=== PATIENT | male | born 1975 | race Caucasian/White ===

== ENCOUNTER 2017-10-05 03:53 | Emergency (ER) | payer OTHER, MEDICAID, SELFPAY ==
[2017-10-05] VITALS (11 sets, daily range): BP systolic 114–133; BP diastolic 74–92; PULSE 83–103; RESP 14–20; TEMP 35.9–37; O2SAT 92–100
--- NOTE | 2017-10-05 04:01 | ED.OVERDOSE ---
HPI - Overdose General Chief Complaint: Toxicology Problem Stated Complaint: Overdose Time Seen by Provider: 10/05/17 03:58 Source: EMS and other (Girlfriend) Mode of arrival: EMS Limitations: altered mental status History of Present Illness HPI Narrative: Patient arrived by EMSafter they were called along with the police by the patient's girlfriend after she ate concerns of him overdosing on his BuSpar And also consuming copious amounts of alcohol. Is reported that sometime prior to EMS being called patient took up to 90x 15 mg BuSpar tablets Along with alcohol. Related Data Home Medications Medication Instructions Recorded Confirmed sertraline [Zoloft] #0 05/18/17 ibuprofen 600 mg PO TID #0 05/27/17 Previous Rx's Medication Instructions Recorded bupropion HCl [Wellbutrin SR] 100 mg PO BID #30 tab 03/18/17 Allergies Allergy/AdvReac Type Severity Reaction Status Date / Time hydrocodone [HYDROCODONE] Allergy Unknown Unverified 09/04/17 13:01 nicotine [From NICORETTE] Allergy Unknown Unverified 09/04/17 13:01 Review of Systems Review of Systems unobtainable due to mental condition Exam Const General: well developed and No combative Nutritional Appearance: well nourished Limitations: altered mental status and behavioral limitations HENMT Head: normocephalic and atraumatic Nose: external nose normal Face and sinus: normal facial exam Mouth: oral mucosae normal Eyes Eyelids: eyelids normal Pupils: PERRL, reactive and pupil size ( 2 mm) bilaterally Neck Neck: normal visual inspection Chest Chest: normal inspection of the chest Resp Effort & Inspection: not labored and no respiratory distress Auscultation: crackles bilaterally Cardio Rate: regular rate Rhythm: regular rhythm Heart Sounds: no click, no gallops, no murmurs and no rubs Pulses: normal peripheral pulses GI Inspection: non-distended and scar (Midline surgical scar) Palpation: soft Back/Spine/Pelvis Back: normal to inspection Thoracic/Lumbar Spine: thoracic and lumbar spine normal to inspection Skin General: No jaundice and No petechiae Other: Superficial abrasions left elbow Bruising over the left lateral chest wall that does not appear to be new Neuro Other: Patient not cooperative with EXAM GCS of 8 Eye 3 Verbal 1 Motor 4 Extrem Other: No gross deformities Moves all 4 extremities spontaneously however not to command Psych Other: Unable to evaluate secondary to patient's clinical condition MDM - Overdose MDM Narrative Medical decision making narrative: l I discussed the case with poison Control who stated that he needed to be observed for 4 hr after the last ingestion of the BuSpar. Patient has had no sign of seizures. At 1 point did wake up and tried to get out of bed however was directable and did urinate. Does have elevated alcohol level. No other signs of toxic ingestion. Will continue to monitor here in the emergency department for sobriety then re-evaluate for potential mental health evaluation. Turned over to Dr. Venegas at change of shift to follow-up on clinical sobriety and disposition. Lab Data Attestation: I reviewed the patient's lab results. Result diagrams: 10/05/17 04:15 10/05/17 04:45 Lab Results 10/05/17 10/05/17 10/05/17 Range/Units 03:50 04:15 04:15 WBC 8.7 (4.5-11.0) X10^3/uL RBC 4.69 (4.5-5.9) X10^6/uL Hgb 15.2 (13.5-17.5) g/dL Hct 43.3 (41-53) % MCV 92.3 (80-100) fL MCH 32.4 (26-34) PG MCHC 35.1 (30-36) % RDW 14.3 (11.6-14.8) % Plt Count 324 (150-400) X10^3/uL Neut % (Auto) 58.5 (50-75) % Lymph % (Auto) 28.7 (25-40) % Stanley % (Auto) 11.0 (3-14) % Eos % (Auto) 1.3 L (2-4) % Baso % (Auto) 0.5 (0-2) % Neut # (Auto) 5100 (7518-8467) /uL Sodium (137-145) mmol/L Potassium (3.4-5.1) mmol/L Chloride (98-107) mmol/L Carbon Dioxide (22-32) mmol/L BUN (9-20) mg/dL Creatinine (0.66-1.25) mg/dL Estimated GFR (>60) mL/min BUN/Creatinine Ratio (6-22) Glucose (70-100) mg/dL Lactate (0.7-2.1) mmol/L Calcium (8.4-10.2) mg/dL Total Bilirubin (0.2-1.3) mg/dL Conjugated Bilirubin (0.0-0.3) md/dL Unconjugated Bilirubin (0.0-1.1) mg/dL AST (17-59) IU/L ALT (21-72) IU/L Alkaline Phosphatase (38-126) U/L Total Protein (6.3-8.2) g/dL Albumin (3.5-5.0) g/dL Globulin (1.7-4.1) g/dL Albumin/Globulin Ratio (1.0-2.8) Lipase 207 (23-300) U/L Salicylates < 1.0 (<20) mg/dL Urine Opiates Screen (Negative) Ur Oxycodone Screen (Negative) Urine Methadone Screen (Negative) Acetaminophen < 10 L (10-30) ug/dL Ur Barbiturates Screen (Negative) U Tricyclic Antidepress (Negative) Ur Phencyclidine Scrn (Negative) Ur Amphetamines Screen (Negative) U Methamphetamines Scrn (Negative) Ur MDMA Scrn (Ecstasy) (Negative) U Benzodiazepines Scrn (Negative) Urine Cocaine Screen (Negative) U Marijuana (THC) Screen (Negative) Ethyl Alcohol 220 mg/dL 10/05/17 10/05/17 10/05/17 Range/Units 04:35 04:40 04:45 WBC (4.5-11.0) X10^3/uL RBC (4.5-5.9) X10^6/uL Hgb (13.5-17.5) g/dL Hct (41-53) % MCV (80-100) fL MCH (26-34) PG MCHC (30-36) % RDW (11.6-14.8) % Plt Count (150-400) X10^3/uL Neut % (Auto) (50-75) % Lymph % (Auto) (25-40) % Stanley % (Auto) (3-14) % Eos % (Auto) (2-4) % Baso % (Auto) (0-2) % Neut # (Auto) (0116-8964) /uL Sodium 149 H (137-145) mmol/L Potassium 4.8 (3.4-5.1) mmol/L Chloride 104.0 (98-107) mmol/L Carbon Dioxide 25.0 (22-32) mmol/L BUN 11.0 (9-20) mg/dL Creatinine 0.90 (0.66-1.25) mg/dL Estimated GFR > 60.0 (>60) mL/min BUN/Creatinine Ratio 12.2 (6-22) Glucose 112 H (70-100) mg/dL Lactate 2.8 H (0.7-2.1) mmol/L Calcium 8.9 (8.4-10.2) mg/dL Total Bilirubin 0.4 (0.2-1.3) mg/dL Conjugated Bilirubin 0.0 (0.0-0.3) md/dL Unconjugated Bilirubin 0.1 (0.0-1.1) mg/dL AST 44 (17-59) IU/L ALT 64 (21-72) IU/L Alkaline Phosphatase 68 (38-126) U/L Total Protein 7.6 (6.3-8.2) g/dL Albumin 4.6 (3.5-5.0) g/dL Globulin 3.0 (1.7-4.1) g/dL Albumin/Globulin Ratio 1.5 (1.0-2.8) Lipase (23-300) U/L Salicylates (<20) mg/dL Urine Opiates Screen Negative (Negative) Ur Oxycodone Screen Negative (Negative) Urine Methadone Screen Negative (Negative) Acetaminophen (10-30) ug/dL Ur Barbiturates Screen Negative (Negative) U Tricyclic Antidepress Positive H (Negative) Ur Phencyclidine Scrn Negative (Negative) Ur Amphetamines Screen Negative (Negative) U Methamphetamines Scrn Negative (Negative) Ur MDMA Scrn (Ecstasy) Negative (Negative) U Benzodiazepines Scrn Positive H (Negative) Urine Cocaine Screen Negative (Negative) U Marijuana (THC) Screen Negative (Negative) Ethyl Alcohol mg/dL Course Hospital Course: discussed case with poison Control who state that with the BuSpar concern would be seizures and [employer] depression. Half-life of evaluation for BuSpar is 4 hr after ingestion. Orders Ordered: ED Orders 10/05/17 03:50 Lipase Stat 10/05/17 03:58 EKG-12 Lead Stat 10/05/17 04:15 Acetaminophen Stat Complete Blood Count AUTO DIFF Stat Ethanol (ETOH) Stat Salicylate Stat 10/05/17 04:35 Rapid Drug Screen, Urine Stat 10/05/17 04:40 Lactate (Lactic Acid) Stat 10/05/17 04:45 Comprehensive Metabolic Panel Stat Hepatic (Liver) Panel Stat Discontinued Medications Sodium Chloride (Normal Saline 0.9%) 1,000 mls @ 1,000 mls/hr IV BOLUS ONE Stop: 10/05/17 04:57 Last Infusion: 10/05/17 05:30 Dose: 0 mls/hr Admin: 10/05/17 04:11 Dose: 1,000 mls/hr Ondansetron HCl (Zofran) 4 mg IV NOW ONE Stop: 10/05/17 03:59 Last Admin: 10/05/17 04:11 Dose: 4 mg Last Vital Signs Temp 96.7 F L 10/05/17 04:00 Pulse 92 H 10/05/17 06:40 Resp 17 10/05/17 06:40 BP 119/90 H 10/05/17 06:40 Pulse Ox 100 10/05/17 05:25 Discharge Plan Departure Prescriptions: No Action bupropion HCl [Wellbutrin SR] 100 MG tablet extended release 12 hr 100 mg PO BID Qty: 30 RF: 1 sertraline [Zoloft] 25 mg Tablet Qty: 0 RF: 0 ibuprofen 600 MG tablet 600 mg PO TID Qty: 0 RF: 0
[2017-10-05] MEDS: ONDANSETRON 4 MG/2 ML INJ IV (04:11)
[2017-10-05] MEDS: SODIUM CHLORIDE 0.9% 1,000 ML 1000 ML IV (04:11)
[2017-10-05 04:16] LABS: Lipase 207 U/L (23-300)
[2017-10-05 04:53] LABS: Add Manual Diff / Slide Review NO; Basophils Percent Auto 0.5 % (0-2); Eosinophils Percent Auto 1.3 % (2-4); Hematocrit 43.3 % (41-53); Hemoglobin 15.2 g/dL (13.5-17.5); Lymphocytes Percent Auto 28.7 % (25-40); Mean Corpuscular HGB Conc 35.1 % (30-36); Mean Corpuscular Hemoglobin 32.4 PG (26-34); Mean Corpuscular Volume 92.3 fL (80-100); Neutrophils Absolute Auto 5100 /uL (3000-5900); Neutrophils Percent Auto 58.5 % (50-75); Platelet Count 324 X10^3/uL (150-400); Red Blood Cell Count 4.69 X10^6/uL (4.5-5.9); Red Cell Distribution Width 14.3 % (11.6-14.8); White Blood Cell Count 8.7 X10^3/uL (4.5-11.0)
[2017-10-05 04:54] LABS: Acetaminophen < 10 ug/dL (10-30); Ethanol (ETOH) 220 mg/dL
[2017-10-05 04:55] LABS: Salicylate < 1.0 mg/dL (<20)
[2017-10-05 04:58] LABS: Urine Amphetamines Negative (Negative); Urine Barbiturates Negative (Negative); Urine Benzodiazepines Positive (Negative); Urine Cocaine Negative (Negative); Urine MDMA Negative (Negative); Urine Methadone Negative (Negative); Urine Methamphetamines Negative (Negative); Urine Morphine/Opi cutoff 2000 Negative (Negative); Urine Phencyclidine Negative (Negative); Urine Tetrahydrocannabinol Negative (Negative)
[2017-10-05 04:58] LABS: Alanine Aminotransferase 64 IU/L (21-72); Albumin 4.6 g/dL (3.5-5.0); Albumin Globulin Ratio 1.5 (1.0-2.8); Alkaline Phosphatase 68 U/L (38-126); Aspartate Aminotransferase 44 IU/L (17-59); BUN Creatinine Ratio 12.2 (6-22); Bilirubin Total 0.4 mg/dL (0.2-1.3); Bilirubin Unconjugated 0.1 mg/dL (0.0-1.1); Calcium 8.9 mg/dL (8.4-10.2); Estimated Glomerular Filt Rate > 60.0 mL/min (>60); Glucose 112 mg/dL (70-100); HEMOLYSIS 19 (0-50); Potassium 4.8 mmol/L (3.4-5.1); Sodium 149 mmol/L (137-145); Total Protein 7.6 g/dL (6.3-8.2)
[2017-10-05 04:59] LABS: Urine Oxycodone Negative (Negative); Urine Tricyclic Antidepressant Positive (Negative)
[2017-10-05 05:07] LABS: Lactate (Lactic Acid) 2.8 mmol/L (0.7-2.1)
[2017-10-05 08:53] LABS: Reflexed Lactate in 2 Hours Y
[2017-10-05 09:37] LABS: Lactate 2HR (Lactic Acid Rflx) 2.2 mmol/L (0.7-2.1)
--- NOTE | 2017-10-05 10:10 | PC.NURSE ---
Girlfriend calls. States will be back to ED to see patient and talk with cdmhp.
== END 2017-10-05 14:09 ==
PROVIDERS: Emergency Medicine; Emergency Provider Emergency Medicine
DX: T50.901A Poisoning by unspecified drugs, medicaments and biological substances, accidental (unintentional), initial encounter (principal); F10.929 Alcohol use, unspecified with intoxication, unspecified; R45.851 Suicidal ideations
CPT/HCPCS: 36591; 80053; 80076; 80305; 80320; 80329; 83605; 83690; 85025; 93005; 96361; 96374; 99285; G0480; J2405

== ENCOUNTER → 2018-09-29 11:38 | Outpatient (CLI) | payer OTHER, MEDICAID, SELFPAY ==
--- NOTE | 2018-09-29 | DI.RAD.S_ITS ---
PROCEDURE: XR HAND LT MIN 3V INDICATIONS: L HAND SWELLING/PAIN S/P INJURY TECHNIQUE: 3 views of the hand(s) acquired. COMPARISON: None. FINDINGS: Bones: Mildly displaced and moderately angulated fifth metacarpal neck fracture. Mild rotation of the fifth metacarpal head. No dislocation. Irregularity of the third distal phalanx tuft indicating remote injury with healing. Carpal bones are normally aligned. No suspicious bony lesions. Soft tissues: No suspicious soft tissue calcifications. Moderate soft tissue swelling along the medial aspect of the hand. IMPRESSION: Mildly displaced, angulated, and slightly rotated fifth metacarpal fracture. Dictated by: Carlyn Motta M.D. on 09/29/2018 at 13:29 Approved by: Carlyn Motta M.D. on 09/29/2018 at 13:31
== END ==
PROVIDERS: Visit Provider Internal Medicine
DX: M79.642 Pain in left hand (principal); S62.337A Displaced fracture of neck of fifth metacarpal bone, left hand, initial encounter for closed fracture; M79.89 Other specified soft tissue disorders; X58.XXXA Exposure to other specified factors, initial encounter
CPT/HCPCS: 73130

== ENCOUNTER 2018-10-12 00:37 | Emergency (ER) | payer OTHER, MEDICAID, SELFPAY ==
--- NOTE | 2018-10-12 00:48 | ED.GENADULT ---
HPI - General Adult General Stated complaint: Fit for [facility] Time Seen by Provider: 10/12/18 00:43 Source: patient and police Mode of arrival: ambulatory Limitations: other (Intoxicated) History of Present Illness HPI narrative: Patient is a 43-year-old male. History of PTSD and depression. Is brought in by police for a fit for shelter. Patient does have a splint on his left hand secondary to a known fracture. He is under the care of Orthopedics. He states he does take the splint off on a daily basis to shower. He reports no symptoms. He states he has been drinking tonight. Related Data Home Medications Medication Instructions Recorded Confirmed sertraline [Zoloft] #0 05/18/17 ibuprofen 600 mg PO TID #0 05/27/17 Previous Rx's Medication Instructions Recorded bupropion HCl [Wellbutrin SR] 100 mg PO BID #30 tab 03/18/17 Allergies Allergy/AdvReac Type Severity Reaction Status Date / Time hydrocodone [HYDROCODONE] Allergy Unknown Verified 10/12/18 00:51 nicotine [From NICORETTE] Allergy Unknown Verified 10/12/18 00:51 Review of Systems Constitutional Denies fatigue Cardiovascular Denies chest pain and Denies dyspnea Respiratory Denies dyspnea Gastrointestinal Gastrointestinal: Denies abdominal pain Musculoskeletal Comments: Splint to left hand Integumentary/Breasts Denies rash Psychiatric Comments: Intoxication Endocrine Denies fatigue [facility] Medical History (Updated 10/12/18 @ 00:53 by Harjinder Wen DO) Depression (Acute) PTSD (post-traumatic stress disorder) (Acute) Social History marital status: lives independently: Yes Social History marital status: lives independently: Yes Exam Const General: cooperative, well developed, well groomed and No acute distress Orientation: alert, awake and oriented x3 Resp Effort & Inspection: normal respiratory effort Auscultation: clear to auscultation bilaterally Cardio Rate: regular rate Rhythm: regular rhythm Skin Lesions: no lesions Rashes: no rashes Extrem Other: Splint to left hand Psych Appearance: grossly normal and well kempt Mental Status: other (Crying) Mood: other (Crying) Medical Decision Making MDM Narrative Medical decision making narrative: Patient smells of alcohol however is alert and oriented. Walked in under his own power. Has no complaints. Has no other signs of toxic ingestion. No signs of trauma. Patient is fit for shelter. Discharge Plan Departure Patient Disposition: Released, Other Clinical Impression: Alcohol intoxication Qualifiers: Complication of substance-induced condition: uncomplicated Qualified Code(s): F10.920 - Alcohol use, unspecified with intoxication, uncomplicated Activity Restrictions/Additional Instructions: Pawan is fit for shelter. He should keep the splint on his left hand at all times. If needed he does need followed up with the [facility] at the beginning of October at appointment that he already has scheduled. Prescriptions: No Action bupropion HCl [Wellbutrin SR] 100 MG tablet extended release 12 hr 100 mg PO BID Qty: 30 RF: 1 sertraline [Zoloft] 25 mg tablet Qty: 0 RF: 0 ibuprofen 600 MG tablet 600 mg PO TID Qty: 0 RF: 0
[2018-10-12 00:51] VITALS: BP 144/98; PULSE 102; RESP 15; TEMP 36.8; O2SAT 95
--- NOTE | 2018-10-12 00:53 | ED_ITS ---
HPI - General Adult General Stated complaint: Fit for Nursing Home Time Seen by Provider: 10/12/18 00:43 Source: patient and police Mode of arrival: ambulatory Limitations: other (Intoxicated) History of Present Illness HPI narrative: Patient is a 43-year-old male. History of PTSD and depression. Is brought in by police for a fit for [facility]iary. Patient does have a splint on his left hand secondary to a known fracture. He is under the care of Orthopedics. He states he does take the splint off on a daily basis to shower. He reports no symptoms. He states he has been drinking tonight. Related Data Home Medications Medication Instructions Recorded Confirmed sertraline [Zoloft] #0 05/18/17 ibuprofen 600 mg PO TID #0 05/27/17 Previous Rx's Medication Instructions Recorded bupropion HCl [Wellbutrin SR] 100 mg PO BID #30 tab 03/18/17 Allergies Allergy/AdvReac Type Severity Reaction Status Date / Time hydrocodone [HYDROCODONE] Allergy Unknown Verified 10/12/18 00:51 nicotine [From NICORETTE] Allergy Unknown Verified 10/12/18 00:51 Review of Systems Constitutional Denies fatigue Cardiovascular Denies chest pain and Denies dyspnea Respiratory Denies dyspnea Gastrointestinal Gastrointestinal: Denies abdominal pain Musculoskeletal Comments: Splint to left hand Integumentary/Breasts Denies rash Psychiatric Comments: Intoxication Endocrine Denies fatigue [facility] Medical History (Updated 10/12/18 @ 00:53 by Harjinder Wen DO) Depression (Acute) PTSD (post-traumatic stress disorder) (Acute) Social History marital status: lives independently: Yes Social History marital status: lives independently: Yes Exam Const General: cooperative, well developed, well groomed and No acute distress Orientation: alert, awake and oriented x3 Resp Effort & Inspection: normal respiratory effort Auscultation: clear to auscultation bilaterally Cardio Rate: regular rate Rhythm: regular rhythm Skin Lesions: no lesions Rashes: no rashes Extrem Other: Splint to left hand Psych Appearance: grossly normal and well kempt Mental Status: other (Crying) Mood: other (Crying) Medical Decision Making MDM Narrative Medical decision making narrative: Patient smells of alcohol however is alert and oriented. Walked in under his own power. Has no complaints. Has no other signs of toxic ingestion. No signs of trauma. Patient is fit for penitentiary. Discharge Plan Departure Patient Disposition: Released, Other Clinical Impression: Alcohol intoxication Qualifiers: Complication of substance-induced condition: uncomplicated Qualified Code(s): F10.920 - Alcohol use, unspecified with intoxication, uncomplicated Activity Restrictions/Additional Instructions: [facility] is fit for penitentiary. He should keep the splint on his left hand at all times. If needed he does need followed up with the [facility] group at the beginning of October at appointment that he already has scheduled. Prescriptions: No Action bupropion HCl [Wellbutrin SR] 100 MG tablet extended release 12 hr 100 mg PO BID Qty: 30 RF: 1 sertraline [Zoloft] 25 mg tablet Qty: 0 RF: 0 ibuprofen 600 MG tablet 600 mg PO TID Qty: 0 RF: 0
== END 2018-10-12 00:59 | disposition home or self-care (01) ==
LOC: ED 00:55
PROVIDERS: Emergency Provider Emergency Medicine
DX: F10.920 Alcohol use, unspecified with intoxication, uncomplicated (principal)
CPT/HCPCS: 99282

== ENCOUNTER 2018-10-13 18:52 | Emergency (ER) | payer OTHER, MEDICAID, SELFPAY ==
[2018-10-13 19:05] VITALS: BP 126/86; PULSE 81; RESP 18; TEMP 36.2; O2SAT 98
[2018-10-13] MEDS: OLANZapine 10 MG VIAL IM (19:21)
--- NOTE | 2018-10-13 19:43 | PC.NURSE ---
Pt continues to be verbally aggressive and threatening Whats your name? I'm going to find you. Changed to safety attire. Leg restraints removed. Lacerations bleeding, coban and non stick dressing applied.
--- NOTE | 2018-10-13 19:52 | PC.NURSE ---
Pt became increasingly hostile and aggressive while staff performing the nursing cares of assisting pt to don hospital attire and dress bleeding lacs to left FA. Pt repeatedly threatened RN, What's your name? I'll find you. Tell me your name! with officers at bedside. Pt attempted to kick label maker and police captain precinct while drawing blood. [employer] officers at bedside placed pt under arrest. Pt remains in 4-point restraints for safety. Dr Warner aware of events.
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
--- NOTE | 2018-10-13 20:23 | PC.NURSE ---
Pt w/ 1:1 [place] [employer] officer at door since admission. Pt is under arrest.
[2018-10-13 20:37] VITALS: PULSE 67; RESP 18; O2SAT 97
[2018-10-13 20:38] LABS: Basophils Absolute Auto 100 /uL (0-100); Basophils Percent Auto 1.3 % (0-2); Eosinophils Absolute Auto 100 /uL (0-450); Eosinophils Percent Auto 0.8 % (2-4); Hematocrit 47.1 % (41-53); Hemoglobin 16.2 g/dL (13.5-17.5); Lymphocytes Absolute Auto 2800 /uL (1100-4500); Lymphocytes Percent Auto 33.2 % (25-40); Mean Corpuscular HGB Conc 34.5 % (30-36); Mean Corpuscular Volume 92.8 fL (80-100); Monocytes Absolute Auto 500 /uL (0-900); Monocytes Percent Auto 6.2 % (3-14); Neutrophils Absolute Auto 5000 /uL (1500-7000); Neutrophils Percent Auto 58.5 % (50-75); Red Blood Cell Count 5.07 X10^6/uL (4.5-5.9); Red Cell Distribution Width 13.1 % (11.6-14.8); White Blood Cell Count 8.5 X10^3/uL (4.5-11.0)
[2018-10-13 20:45] LABS: Acetaminophen < 10 ug/mL (10-30); Alanine Aminotransferase 38 IU/L (21-72); Albumin 4.7 g/dL (3.5-5.0); Albumin Globulin Ratio 1.5 (1.0-2.8); Alkaline Phosphatase 80 U/L (38-126); Aspartate Aminotransferase 43 IU/L (17-59); Bilirubin Total 0.4 mg/dL (0.2-1.3); Blood Urea Nitrogen 9 mg/dL (9-20); Calcium 9.8 mg/dL (8.4-10.2); Carbon Dioxide 28 mmol/L (22-32); Chloride 108 mmol/L (98-107); Estimated Glomerular Filt Rate > 60.0 mL/min (>60); Ethanol (ETOH) 253 mg/dL; Globulin 3.2 g/dL (1.7-4.1); Glucose 94 mg/dL (70-100); HEMOLYSIS 25 (0-50); Potassium 3.9 mmol/L (3.4-5.1); Salicylate < 1.0 mg/dL (<20); Sodium 147 mmol/L (137-145); Total Protein 7.9 g/dL (6.3-8.2)
[2018-10-13] MEDS: TET,DIPH,PERTUSS(ACELL),VAC/PF 0.5 ML SYRINGE IM (20:46)
[2018-10-13 20:47] LABS: Urine Amphetamines Negative (Negative); Urine Barbiturates Negative (Negative); Urine Benzodiazepines Positive (Negative); Urine Cocaine Negative (Negative); Urine MDMA Negative (Negative); Urine Methadone Negative (Negative); Urine Methamphetamines Negative (Negative); Urine Morphine/Opi cutoff 2000 Negative (Negative); Urine Oxycodone Negative (Negative); Urine Phencyclidine Negative (Negative); Urine Tetrahydrocannabinol Negative (Negative); Urine Tricyclic Antidepressant Negative (Negative)
[2018-10-13 20:48] LABS: Add Manual Diff / Slide Review SLIDE REVIEW
[2018-10-13 21:05] LABS: Platelet Estimate Adequate on smear; RBC Morphology Normal Morphology
[2018-10-13 21:06] LABS: Platelet Count 312 X10^3/uL (150-400)
[2018-10-13 21:29] LABS: Thyroid Stimulating Hormone 0.54 uIU/mL (0.47-4.68)
--- NOTE | 2018-10-13 21:44 | PC.NURSE ---
pt arrived with splint to lt hand, states this is for a fracture. after suture repair of rt wrist, unable to locate splint after its removal. Attempted to make new splint for pt, pt refused, states your not fucking doing it right, notified
--- NOTE | 2018-10-13 22:21 | PC.NURSE ---
PD officer that was 1:1 patient left 2215 r/t not able to take pt at nursing home. Pt out of four point restraints, mattress on floor in non-ligature room in non-ligature scrubs. Wounds to lt fa dressed with bacitracin/telfa/abd/coban, distal cms intact. Pt given food/fluids at request.
--- NOTE | 2018-10-13 22:48 | PC.NURSE ---
pt laying on mat
--- NOTE | 2018-10-13 23:00 | PC.NURSE ---
Pt laying on mat
--- NOTE | 2018-10-13 23:06 | PC.NURSE ---
Visualize chest rise
--- NOTE | 2018-10-13 23:16 | PC.NURSE ---
Pt. is resting on mat. Visualize chest rise
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
--- NOTE | 2018-10-13 23:32 | PC.NURSE ---
Pt. is still laying on mat resting and visualize chest rise.
--- NOTE | 2018-10-13 23:34 | PC.NURSE ---
Pt. showing some movement while laying on mat.
--- NOTE | 2018-10-14 00:01 | PC.NURSE ---
Pt. is still laying on mat sleeping and visualize chest rise.
[2018-10-14 00:15] VITALS: BP 99/60; PULSE 79; RESP 16; TEMP 36.6; O2SAT 100
--- NOTE | 2018-10-14 00:22 | PC.NURSE ---
Vitals sign was done at 0015am, Pt was alert cuss in pain when touch his left arm, got pt. some warm blankets.Pt. is breathing.
--- NOTE | 2018-10-14 00:25 | PC.NURSE ---
0025 at provider request [facility] contacted r/t PATEL ibrahim r/t [facility]
--- NOTE | 2018-10-14 00:47 | PC.NURSE ---
Pt. is sleeping on mat, visualize chest rise
--- NOTE | 2018-10-14 01:15 | PC.NURSE ---
Pt is still sleeping on mat. Visualize chest rise
--- NOTE | 2018-10-14 01:31 | PC.NURSE ---
Pt. is resting and showing slight movement on mat, pt. is breathing
--- NOTE | 2018-10-14 01:47 | PC.NURSE ---
Pt. reposition himself onto his back and is sleeping. Visualize chest rise.
--- NOTE | 2018-10-14 01:56 | PC.NURSE ---
DCR Brigido now in department
--- NOTE | 2018-10-14 02:15 | PC.NURSE ---
Pt.has reposition himself onto his left side.visualize chest rise.
--- NOTE | 2018-10-14 02:47 | PC.NURSE ---
Pt. has been quiet and sleeping for the most part of night so far. Visualize chest rise
--- NOTE | 2018-10-14 03:16 | PC.NURSE ---
Pt. is awake and is sitting up on mat and drinking and eating food and juice that was provide for him. Pt. ask for some water and was given some water. Pt. drank the water.Pt seems to be calm and cooperative. Pt. was provided with an urinal.
--- NOTE | 2018-10-14 03:31 | PC.NURSE ---
Pt. is now laying on mat resting.
--- NOTE | 2018-10-14 04:07 | PC.NURSE ---
Pt. is sleeping, visualize chest rise.
--- NOTE | 2018-10-14 04:21 | PC.NURSE ---
Pt. is sleeping and has reposition himself onto his back. Pt. has not used urinal yet. Pt. is breathing
--- NOTE | 2018-10-14 05:20 | PC.NURSE ---
Pt. is sleeping, lying on his left side, visualize chest rise.
--- NOTE | 2018-10-14 06:00 | PC.NURSE ---
Addendum entered by Suzan Campos CNA 10/14/18 06:01: Original Note: Pt. is still sleeping and breathing.
--- NOTE | 2018-10-14 06:14 | PC.NURSE ---
Pt is sleeping on his right side and visualize breathing
--- NOTE | 2018-10-14 06:45 | PC.NURSE ---
Pt. sleeping and breathing.
--- NOTE | 2018-10-14 07:15 | PC.NURSE ---
Pt is sleeping and visualize chest rise.
--- NOTE | 2018-10-14 07:25 | PC.NURSE ---
Obtained patient care. patient remains in locked seclusion with one to one sitter. Patient resting on mattress in room. Unlabored, respirations visualized. Moving independently
--- NOTE | 2018-10-14 07:45 | PC.NURSE ---
Pt is sleeping visualize chest rise
--- NOTE | 2018-10-14 07:57 | PC.NURSE ---
Pt was awaken by nurse, vitals was taken, pt. was given breakfast and water and juice. Pt seems to be alert and oriented, pt. was cooperative and calm.Pt is sitting up and eating breakfast.
--- NOTE | 2018-10-14 07:57 | PC.NURSE ---
Patient sleeping, woke easily . Provided patient with breakfast, checked vital signs. Patient calm and cooperative.
[2018-10-14 08:00] VITALS: BP 124/90; PULSE 120; RESP 18; O2SAT 99
--- NOTE | 2018-10-14 08:10 | PC.NURSE ---
Patient calm and cooperative with intervention by staff. Follow commands appropriately
--- NOTE | 2018-10-14 08:11 | PC.NURSE ---
Patient girlfriend Amarilis called to speak to patient. Spoke with patient he reports I am not allowed to have contact with her Patient agrees to let Amarilis know she can speak to his mother for any information
--- NOTE | 2018-10-14 08:30 | PC.NURSE ---
pt is sleeping and visualize chest rise
--- NOTE | 2018-10-14 09:20 | PC.NURSE ---
Pt. is resting on mat, visualize chest rise
--- NOTE | 2018-10-14 09:32 | PC.NURSE ---
Patient continues to sleep. Resp even and unlabored. Patient remains calm. Patients girlfriend arrived to ER. Redirected her to contact family for any information regarding patients care. Rg left department very upset and tearful.
--- NOTE | 2018-10-14 09:43 | PC.NURSE ---
Pt. is sleeping, visualize chest rise, pt. moves independently.
--- NOTE | 2018-10-14 10:38 | PC.NURSE ---
Spoke to patients mother regarding transfer. Provided with contact information for facility patient will be transferred to. Permission from patient to speak with mother was obtained.
--- NOTE | 2018-10-14 10:42 | PC.NURSE ---
Patient was reading over paperwork and stated he could not see it without glasses and did not remember stated some of the items on the paperwork..
--- NOTE | 2018-10-14 10:45 | PC.NURSE ---
RN is updating patient on status of ambulance arrival and other items
--- NOTE | 2018-10-14 10:51 | PC.NURSE ---
Patient updated on arrival time of ambulance. Delayed by 1hr. Patient reports he is confused that he doesn't recall the discussion of the papers. Explained to patient his paperwork and the plan for his care. Patient expresses frustration with going to facility. Patient has concerns about car and job. Patient ok with contacting mother to notify work and find car.
--- NOTE | 2018-10-14 11:06 | PC.NURSE ---
patient resting on bed
--- NOTE | 2018-10-14 11:31 | PC.NURSE ---
Patient laying on bed resting
--- NOTE | 2018-10-14 11:38 | PC.NURSE ---
pt laying on mattress with blankets over him, lights are on in room.
[2018-10-14] MEDS: LORazepam 0.5 MG TABLET 2 MG PO (11:42)
--- NOTE | 2018-10-14 11:52 | PC.NURSE ---
Received phone call from patient's mother and she wanted us to let patient know that she is going to take care of his car and also that she notified his workplace and they send good wishes
[2018-10-14 12:05] VITALS: BP 134/83; PULSE 99; RESP 14; O2SAT 99
--- NOTE | 2018-10-14 12:11 | PC.NURSE ---
[facility] arrived at 1210 for patient transfer to [facility]
--- NOTE | 2018-10-14 12:26 | PC.NURSE ---
Patient care transferred to ambulance for transport to inpatient facility. Patient calm and cooperative. C/O pain left wrist when on stretcher. short arm splint put in place for known fracture to left wrist. Verbal ok per MD.
== END 2018-10-14 12:28 ==
PROVIDERS: Emergency Medicine; Emergency Provider Emergency Medicine
DX: F10.20 Alcohol dependence, uncomplicated (principal); S41.112A Laceration without foreign body of left upper arm, initial encounter; W26.8XXA Contact with other sharp object(s), not elsewhere classified, initial encounter; Z23 Encounter for immunization
CPT/HCPCS: 12002; 12032; 29125; 80053; 80305; 80320; 80329; 81003; 84443; 85025; 90471; 96372; 99285; 90715; G0480; S0166

== ENCOUNTER 2019-05-10 15:12 | Emergency (ER) | payer OTHER, MEDICAID, SELFPAY ==
[2019-05-10 15:16] VITALS: BP 147/95; PULSE 82; RESP 22; TEMP 36.4; O2SAT 100
--- NOTE | 2019-05-10 15:34 | ED.CHESTPAIN ---
HPI - Chest Pain General Chief Complaint: Chest Pain Stated Complaint: Chest Pains Time Seen by Provider: 05/10/19 15:23 Source: patient Mode of arrival: Ambulatory History of Present Illness HPI narrative: 44-year-old otherwise healthy gentleman with a history of alcohol abuse disorder as well as prior pulmonary embolism (resolved, not anticoagulated currently) began having chest pain this morning at 8:00 a.m. as he was just waking up. He describes it as left-sided chest pain radiating into his right arm associated with some dyspnea, mild nausea, no significant diaphoresis, and continuing to worsen over the course of the day. He drove himself and walked into the emergency room and initial EKG confirms ST elevation in leads II,III and AVF STEMI protocols and transfer were initiated immediately Related Data Home Medications Medication Instructions Recorded Confirmed sertraline [Zoloft] #0 05/18/17 ibuprofen 600 mg PO TID #0 05/27/17 Previous Rx's Medication Instructions Recorded bupropion HCl [Wellbutrin SR] 100 mg PO BID #30 tab 03/18/17 Allergies Allergy/AdvReac Type Severity Reaction Status Date / Time hydrocodone [HYDROCODONE] Allergy Unknown Verified 10/12/18 00:51 nicotine [From NICORETTE] Allergy Unknown Verified 10/12/18 00:51 Review of Systems Review of Systems Narrative: Denies ? fever ? cough ? cold ? chills ? orthopnea ? wheezing ? abdominal pain ? change to bowel or bladder habits ? vomiting ? skin changes ? rashes ROS Unobtainable: All systems reviewed & are unremarkable except as noted in HPI and below Patient History Social History marital status: lives independently: Yes Exam Narrative Exam Narrative: General: Healthy appearing, acute distress, holding onto his left chest and complaining of pain. Able to give a complete and coherent history. Well-nourished well-developed HEENT: Moist mucous membranes, normal sclera with reactive pupils, Neck: No JVD, supple Respiratory: Lungs are clear to auscultation, no wheezing no rales no rhonchi. Full and symmetrical air movement Cardiac: Regular rate and rhythm no murmurs no bruits Abdomen: Soft nontender good bowel tones, no flank pain Skin: Warm and dry, no rashes Neurologic: Grossly neurologically intact with no obvious asymmetries or abnormalities Extremities: No trauma, well perfused Psych: Cooperative, appropriate insight and affect Initial Vital Signs Initial Vital Signs: Vital Signs Temperature 97.6 F 05/10/19 15:16 Pulse Rate 82 05/10/19 15:16 Respiratory Rate 22 05/10/19 15:16 Blood Pressure 147/95 H 05/10/19 15:16 Pulse Oximetry 100 05/10/19 15:16 Course Orders Ordered: ED Orders 05/10/19 15:19 EKG-12 Lead Stat 05/10/19 15:34 Complete Blood Count AUTO DIFF Stat Comprehensive Metabolic Panel Stat D Dimer Stat Troponin & CK Cardiac Panel Stat Vital Signs Vital signs: Vital Signs - 8 hr 05/10/19 15:16 05/10/19 15:39 Temperature 97.6 F Pulse Rate 82 92 H Respiratory Rate 22 Blood Pressure 147/95 H 156/92 H Pulse Oximetry 100 MDM - Chest Pain Medical Records Data Attestation: I reviewed the patient's medical records. Lab Data Attestation: I reviewed the patient's lab results. Result diagrams: 05/10/19 15:34 05/10/19 15:34 Labs: Lab Results 05/10/19 05/10/19 05/10/19 Range/Units 15:34 15:34 15:34 WBC 14.2 H (4.5-11.0) X10^3/uL RBC 4.94 (4.5-5.9) X10^6/uL Hgb 15.5 (13.5-17.5) g/dL Hct 43.6 (41-53) % MCV 88.2 (80-100) fL MCH 31.3 (26-34) PG MCHC 35.5 (30-36) % RDW 13.3 (11.6-14.8) % Plt Count 348 (150-400) X10^3/uL Neut % (Auto) 88.3 H (50-75) % Lymph % (Auto) 7.8 L (25-40) % [place] % (Auto) 3.6 (3-14) % Eos % (Auto) 0.0 L (2-4) % Baso % (Auto) 0.3 (0-2) % Neut # (Auto) 22261 H (6420-8887) /uL Lymph # (Auto) 1100 (5896-8191) /uL [place] # (Auto) 500 (0-900) /uL Eos # (Auto) 0 (0-450) /uL Baso # (Auto) 0 (0-100) /uL D-Dimer < 200 (<230) ng/mL Sodium 137 (137-145) mmol/L Potassium 3.9 (3.4-5.1) mmol/L Chloride 98 (98-107) mmol/L Carbon Dioxide 30 (22-32) mmol/L BUN 11 (9-20) mg/dL Creatinine 0.80 (0.66-1.25) mg/dL Estimated GFR > 60.0 (>60) mL/min BUN/Creatinine Ratio 13.8 (6-22) Glucose 134 H (70-100) mg/dL Calcium 9.6 (8.4-10.2) mg/dL Total Bilirubin 0.7 (0.2-1.3) mg/dL AST 27 (17-59) IU/L ALT 22 (<50) IU/L Alkaline Phosphatase 84 (38-126) U/L Total Creatine Kinase 143 (55-170) U/L CK-MB (CK-2) 4.40 H (<2.37) ng/mL CK-MB (CK-2) Rel Index 3.1 (1.5-5.0) % Troponin I 0.316 H* (0.01-0.034) ng/mL Total Protein 7.9 (6.3-8.2) g/dL Albumin 4.9 (3.5-5.0) g/dL Globulin 3.0 (1.7-4.1) g/dL Albumin/Globulin Ratio 1.6 (1.0-2.8) Troponin 0.316 ECG Data Attestation: I personally reviewed and interpreted this ECG as follows: Interpretation: STEMI, inferior, presumed right coronary artery ST elevation in leadsII, III, AVF with some minor reciprocal changes in V1 and V2 Core Measures AMI core measures followed: Yes MDM Narrative Medical decision making narrative: Case is reviewed with Dr. Bowman at [facility]. Medics are immediately available. Given his age and severity of pain along with EKG symptoms I have suggested that we keep him monitored including defibrillation pads in place for transport. Initial sublingual nitro x2 brought his pain from a 10 down to a 5. Nitro drip was started. He was given a 5000 unit bolus of heparin. Four aspirin. Medics will administer morphine en route if required. 1 L fluid bolus is being administered. He is tolerating the nitroglycerin well with nicely maintained blood pressure and heart rate. Critical Care Time Critical Care Time Critical Care Time: Yes Total Critical Care Time: 33 Attestation: Critical Care Time 33 minutes: Critical care time is separate from other billable procedures. This critical care time includes consulting doctors, review of records, and interpretation of data from labs, EKGs and imaging as well as managements of Acute cardiovascular compromise with acute myocardial infarction Circulatory compromise or collapse Discharge Plan Departure Patient Disposition: [facility] Clinical Impression: ST elevation (STEMI) myocardial infarction Qualifiers: Involved coronary artery: right coronary artery Qualified Code(s): I21.11 - ST elevation (STEMI) myocardial infarction involving right coronary artery Prescriptions: No Action bupropion HCl [Wellbutrin SR] 100 MG tablet extended release 12 hr 100 mg PO BID Qty: 30 RF: 1 sertraline [Zoloft] 25 mg tablet Qty: 0 RF: 0 ibuprofen 600 MG tablet 600 mg PO TID Qty: 0 RF: 0 Referrals: [facility] ARNP [Primary Care Provider] -
[2019-05-10] MEDS: ASPIRIN 81 MG CHEW TAB 324 MG (15:37)
[2019-05-10 15:38] LABS: Add Manual Diff / Slide Review NO; Basophils Absolute Auto 0 /uL (0-100); Basophils Percent Auto 0.3 % (0-2); Eosinophils Absolute Auto 0 /uL (0-450); Hematocrit 43.6 % (41-53); Hemoglobin 15.5 g/dL (13.5-17.5); Lymphocytes Absolute Auto 1100 /uL (1100-4500); Lymphocytes Percent Auto 7.8 % (25-40); Mean Corpuscular HGB Conc 35.5 % (30-36); Mean Corpuscular Hemoglobin 31.3 PG (26-34); Mean Corpuscular Volume 88.2 fL (80-100); Monocytes Absolute Auto 500 /uL (0-900); Monocytes Percent Auto 3.6 % (3-14); Neutrophils Absolute Auto 12600 /uL (1500-7000); Neutrophils Percent Auto 88.3 % (50-75); Platelet Count 348 X10^3/uL (150-400); Red Blood Cell Count 4.94 X10^6/uL (4.5-5.9); Red Cell Distribution Width 13.3 % (11.6-14.8); White Blood Cell Count 14.2 X10^3/uL (4.5-11.0)
[2019-05-10] MEDS: HEPARIN DRIP 25,000 UNIT/500 ML IV.SOLN 20 UNIT IV (15:38)
[2019-05-10 15:39] VITALS: BP 156/92; PULSE 92
[2019-05-10] MEDS: NITROGLYCERIN 0.4 MG SL TAB SL (15:39)
[2019-05-10] MEDS: HEPARIN 5,000 UNIT/ML VIAL 5000 UNIT (15:39)
[2019-05-10 15:50] LABS: Alanine Aminotransferase 22 IU/L (<50); Albumin 4.9 g/dL (3.5-5.0); Albumin Globulin Ratio 1.6 (1.0-2.8); Alkaline Phosphatase 84 U/L (38-126); Aspartate Aminotransferase 27 IU/L (17-59); BUN Creatinine Ratio 13.8 (6-22); Bilirubin Total 0.7 mg/dL (0.2-1.3); Blood Urea Nitrogen 11 mg/dL (9-20); Calcium 9.6 mg/dL (8.4-10.2); Carbon Dioxide 30 mmol/L (22-32); Chloride 98 mmol/L (98-107); Creatine Kinase 143 U/L (55-170); Estimated Glomerular Filt Rate > 60.0 mL/min (>60); Glucose 134 mg/dL (70-100); HEMOLYSIS < 15 (0-50); Potassium 3.9 mmol/L (3.4-5.1); Sodium 137 mmol/L (137-145); Total Protein 7.9 g/dL (6.3-8.2)
[2019-05-10 15:52] LABS: D Dimer < 200 ng/mL (<230)
[2019-05-10 16:06] LABS: CKMB % Relative Index 3.1 % (1.5-5.0)
[2019-05-10 16:31] LABS: Troponin I 0.316 ng/mL (0.01-0.034)
== END 2019-05-10 15:40 | disposition short-term general hospital (02) ==
PROVIDERS: Emergency Provider Emergency Medicine; PCP Nurse Practitioner Pediatrics
DX: I21.11 ST elevation (STEMI) myocardial infarction involving right coronary artery (principal)
CPT/HCPCS: 36415; 80053; 82550; 82553; 84484; 85025; 85379; 93005; 93010; 96374; 99283; 99291; J1644

== ENCOUNTER 2019-06-26 19:27 | Emergency (ER) | payer OTHER, MEDICAID, SELFPAY ==
[2019-06-26 19:31] VITALS: BP 142/95; PULSE 88; RESP 18; TEMP 36.2; O2SAT 95
--- NOTE | 2019-06-26 21:49 | ED.ALCOHOL ---
HPI - Alcohol General Chief Complaint: Toxicology Problem Stated Complaint: ETOH Source: patient and EMS Mode of arrival: EMS Limitations: no limitations History of Present Illness HPI narrative: The patient was never interviewed evaluated or examined by me. The patient left without being seen and treated. Related Data Home Medications Medication Instructions Recorded Confirmed sertraline [Zoloft] #0 05/18/17 ibuprofen 600 mg PO TID #0 05/27/17 Previous Rx's Medication Instructions Recorded bupropion HCl [Wellbutrin SR] 100 mg PO BID #30 tab 03/18/17 Allergies Allergy/AdvReac Type Severity Reaction Status Date / Time hydrocodone [HYDROCODONE] Allergy Unknown Verified 06/26/19 19:36 nicotine [From NICORETTE] Allergy Unknown Verified 06/26/19 19:36 Patient History Social History marital status: lives independently: Yes Smoking Status: Current every day smoker Smoking Status: Current every day smoker alcohol intake frequency: 3 or more drinks per day Alcohol type: beer, wine and hard liquor Substance Use Type: does not use Exam Initial Vital Signs Initial Vital Signs: Vital Signs Temperature 97.1 F L 06/26/19 19:31 Pulse Rate 88 06/26/19 19:31 Respiratory Rate 18 06/26/19 19:31 Blood Pressure 142/95 H 06/26/19 19:31 Pulse Oximetry 95 06/26/19 19:31 Course Vital Signs Vital signs: Vital Signs - 8 hr 06/26/19 19:31 Temperature 97.1 F L Pulse Rate 88 Respiratory Rate 18 Blood Pressure 142/95 H Pulse Oximetry 95 Discharge Plan Departure Patient Disposition: Left Without Being Seen Clinical Impression: Patient left without being seen Discharge Date/Time: 06/26/19 19:45
== END 2019-06-26 19:45 | disposition left against medical advice (07) ==
PROVIDERS: Emergency Provider Emergency Medicine; PCP Nurse Practitioner Pediatrics
CPT/HCPCS: 99282

== ENCOUNTER 2019-07-06 15:38 | Emergency (ER) | payer OTHER, MEDICAID, SELFPAY ==
[2019-07-06] VITALS (19 sets, daily range): BP systolic 131–172; BP diastolic 77–90; PULSE 72–91; RESP 22; TEMP 36.5; O2SAT 92–97
--- NOTE | 2019-07-06 15:53 | ED_ITS ---
HPI - General Adult <Harjinder Wen DO - Last Filed: 07/07/19 10:06> General Chief complaint: Toxicology Problem Stated complaint: ETOH Time Seen by Provider: 07/06/19 15:40 Source: EMS and police Mode of arrival: EMS Limitations: other (Intoxication) History of Present Illness HPI narrative: 44-year-old male known history of alcohol abuse brought in by EMS. Also had a police escort. EMS reports the patient obviously intoxicated. Is combative. Was not given any medicines prior to arrival. Report was that the patient was found at a individual's house. This individual has a restra ining order against the patient. The police were called. The patient was intoxicated. He was combative. Patient was brought into the emergency department because he was making multiple statements about wanting to kill himself. Related Data Home Medications Medication Instructions Recorded Confirmed sertraline [Zoloft] #0 05/18/17 ibuprofen 600 mg PO TID #0 05/27/17 aspirin 81 mg PO DAILY 07/06/19 07/06/19 bupropion HCl PO 07/06/19 buspirone 15 mg PO TID 07/06/19 07/06/19 hydroxyzine HCl 07/06/19 metoprolol succinate 25 mg PO DAILY 07/06/19 07/06/19 ticagrelor [Brilinta] 90 mg PO BID 07/06/19 07/06/19 zolpidem 07/06/19 Allergies Allergy/AdvReac Type Severity Reaction Status Date / Time hydrocodone [HYDROCODONE] Allergy Unknown Verified 06/26/19 19:36 nicotine [From NICORETTE] Allergy Unknown Verified 06/26/19 19:36 Review of Systems <Harjinder Wen DO - Last Filed: 07/07/19 10:06> Review of Systems Narrative: Patient unwilling/unable to provide any HPI Patient History <Harjinder Wen DO - Last Filed: 07/07/19 10:06> Medical History Alcohol intoxication (Inactive) Depression (05/29/16) Depression (Acute) PTSD (post-traumatic stress disorder) (Acute) Pulmonary embolism (Inactive) Social History marital status: lives independently: Yes Smoking Status: Current every day smoker Smoking Status: Current every day smoker alcohol intake frequency: 3 or more drinks per day Alcohol type: beer, wine and hard liquor Substance Use Type: does not use Exam <Harjinder Wen DO - Last Filed: 07/07/19 10:06> Initial Vital Signs Initial Vital Signs: Vital Signs Temperature 97.7 F 07/06/19 15:43 Pulse Rate 91 H 07/06/19 15:43 Respiratory Rate 22 07/06/19 15:43 Blood Pressure 172/90 H 07/06/19 15:43 Pulse Oximetry 92 07/06/19 15:43 Const General: No cooperative Limitations: other limitations (Intoxication) Resp Effort & Inspection: normal respiratory effort GI Inspection: non-distended Skin Rashes: no rashes Neuro General: awake and moves all extremities Extrem General: No edema Psych Appearance: disheveled Mental Status: other (Intoxicated) Speech and Movement: agitated and restless Mood: angry and other (Intoxicated) Affect: hostile Attitude: belligerent and refuses to answer Thought Content: suicidality Judgment: poor <Alberto Ibanez MD - Last Filed: 07/08/19 15:21> Initial Vital Signs Initial Vital Signs: Vital Signs Temperature 97.7 F 07/06/19 15:43 Pulse Rate 91 H 07/06/19 15:43 Respiratory Rate 22 07/06/19 15:43 Blood Pressure 172/90 H 07/06/19 15:43 Pulse Oximetry 92 07/06/19 15:43 Course <Harjinder Wen DO - Last Filed: 07/07/19 10:06> Orders Ordered: Discontinued Medications Diphenhydramine HCl (Benadryl) 50 mg IM NOW ONE Stop: 07/06/19 15:52 Last Admin: 07/06/19 16:03 Dose: 50 mg Documented by: TORI Haloperidol (Haldol) 5 mg IM NOW ONE Stop: 07/06/19 15:52 Last Admin: 07/06/19 16:03 Dose: 5 mg Documented by: TORI Lorazepam (Ativan) 2 mg IM NOW ONE Stop: 07/06/19 15:52 Last Admin: 07/06/19 16:03 Dose: 2 mg Documented by: TORI Vital Signs Vital signs: Vital Signs - 8 hr 07/07/19 07:55 Temperature 98.6 F Pulse Rate 89 Respiratory Rate 12 Blood Pressure [Right Arm] 145/78 H Pulse Oximetry 99 Restraint [id number] evaluation Date: 07/06/19 Time: 15:54 Mental Status Exam Patient Appearance: Disheveled Level of Consciousness: Alert, Inappropriate and Restless Speech Pattern: Excited and Slurred Mood Description: Angry, Anxious and Hostile Ability to Follow Directions: Poor Hallucination Type: None Thought Process:: Illogical Physical Status Respirations: Unlabored Circulation: Moves all extremities Assessment of Situation Behavior necessitating restraint: ETOH/Substance Abuse Restraint Risks: Airway obstruction Restraint risks explained to patient: No Restraint risks explained to family: No <Alberto Ibanez MD - Last Filed: 07/08/19 15:21> Orders Ordered: Discontinued Medications Diphenhydramine HCl (Benadryl) 50 mg IM NOW ONE Stop: 07/06/19 15:52 Last Admin: 07/06/19 16:03 Dose: 50 mg Documented by: TORI Haloperidol (Haldol) 5 mg IM NOW ONE Stop: 07/06/19 15:52 Last Admin: 07/06/19 16:03 Dose: 5 mg Documented by: TORI Lorazepam (Ativan) 2 mg IM NOW ONE Stop: 07/06/19 15:52 Last Admin: 07/06/19 16:03 Dose: 2 mg Documented by: TORI Vital Signs Vital signs: Vital Signs - 8 hr 07/07/19 07:55 Temperature 98.6 F Pulse Rate 89 Respiratory Rate 12 Blood Pressure [Right Arm] 145/78 H Pulse Oximetry 99 Medical Decision Making <Harjinder Wen DO - Last Filed: 07/07/19 10:06> Lab Data Lab results reviewed: Yes I reviewed the patient's lab results. Result diagrams: 07/06/19 16:11 07/06/19 16:11 Labs: Lab Results 07/06/19 07/06/19 07/06/19 Range/Units 16:11 16:11 16:11 WBC 7.0 (4.5-11.0) X10^3/uL RBC 4.83 (4.5-5.9) X10^6/uL Hgb 15.2 (13.5-17.5) g/dL Hct 43.5 (41-53) % MCV 90.1 (80-100) fL MCH 31.6 (26-34) PG MCHC 35.0 (30-36) % RDW 13.5 (11.6-14.8) % Plt Count 329 (150-400) X10^3/uL Neut % (Auto) 50.7 (50-75) % Lymph % (Auto) 38.9 (25-40) % [place]duffie % (Auto) 8.1 (3-14) % Eos % (Auto) 1.2 L (2-4) % Baso % (Auto) 1.1 (0-2) % Neut # (Auto) 3600 (2541-8911) /uL Lymph # (Auto) 2700 (0995-0435) /uL [place]duffie # (Auto) 600 (0-900) /uL Eos # (Auto) 100 (0-450) /uL Baso # (Auto) 100 (0-100) /uL Sodium 145 (137-145) mmol/L Potassium 4.0 (3.4-5.1) mmol/L Chloride 102 (98-107) mmol/L Carbon Dioxide 27 (22-32) mmol/L BUN 15 (9-20) mg/dL Creatinine 0.90 (0.66-1.25) mg/dL Estimated GFR > 60.0 (>60) mL/min BUN/Creatinine Ratio 16.7 (6-22) Glucose 111 H (70-100) mg/dL Calcium 8.8 (8.4-10.2) mg/dL Total Bilirubin 0.2 (0.2-1.3) mg/dL AST 56 (17-59) IU/L ALT 44 (<50) IU/L Alkaline Phosphatase 75 (38-126) U/L Troponin I (0.01-0.034) ng/mL Total Protein 7.7 (6.3-8.2) g/dL Albumin 4.6 (3.5-5.0) g/dL Globulin 3.1 (1.7-4.1) g/dL Albumin/Globulin Ratio 1.5 (1.0-2.8) Lipase 324 H (23-300) U/L TSH (0.47-4.68) uIU/mL Salicylates < 1.0 (<20) mg/dL U Opiates 300ng/mL cut (Negative) Ur Oxycodone Screen (Negative) Urine Methadone Screen (Negative) Acetaminophen < 10 L (10-30) ug/mL Ur Barbiturates Screen (Negative) U Tricyclic Antidepress (Negative) Ur Phencyclidine Scrn (Negative) Ur Amphetamines Screen (Negative) U Methamphetamines Scrn (Negative) Ur MDMA Scrn (Ecstasy) (Negative) U Benzodiazepines Scrn (Negative) Urine Cocaine Screen (Negative) U Marijuana (THC) Screen (Negative) Ethyl Alcohol 433 H* ( - 10) mg/dL 07/06/19 07/06/19 07/06/19 Range/Units 16:11 16:11 16:30 WBC (4.5-11.0) X10^3/uL RBC (4.5-5.9) X10^6/uL Hgb (13.5-17.5) g/dL Hct (41-53) % MCV (80-100) fL MCH (26-34) PG MCHC (30-36) % RDW (11.6-14.8) % Plt Count (150-400) X10^3/uL Neut % (Auto) (50-75) % Lymph % (Auto) (25-40) % [place]duffie % (Auto) (3-14) % Eos % (Auto) (2-4) % Baso % (Auto) (0-2) % Neut # (Auto) (0168-2208) /uL Lymph # (Auto) (5690-3652) /uL [place]duffie # (Auto) (0-900) /uL Eos # (Auto) (0-450) /uL Baso # (Auto) (0-100) /uL Sodium (137-145) mmol/L Potassium (3.4-5.1) mmol/L Chloride (98-107) mmol/L Carbon Dioxide (22-32) mmol/L BUN (9-20) mg/dL Creatinine (0.66-1.25) mg/dL Estimated GFR (>60) mL/min BUN/Creatinine Ratio (6-22) Glucose (70-100) mg/dL Calcium (8.4-10.2) mg/dL Total Bilirubin (0.2-1.3) mg/dL AST (17-59) IU/L ALT (<50) IU/L Alkaline Phosphatase (38-126) U/L Troponin I 0.018 (0.01-0.034) ng/mL Total Protein (6.3-8.2) g/dL Albumin (3.5-5.0) g/dL Globulin (1.7-4.1) g/dL Albumin/Globulin Ratio (1.0-2.8) Lipase (23-300) U/L TSH 0.40 L (0.47-4.68) uIU/mL Salicylates (<20) mg/dL U Opiates 300ng/mL cut Negative (Negative) Ur Oxycodone Screen Negative (Negative) Urine Methadone Screen Negative (Negative) Acetaminophen (10-30) ug/mL Ur Barbiturates Screen Negative (Negative) U Tricyclic Antidepress Negative (Negative) Ur Phencyclidine Scrn Negative (Negative) Ur Amphetamines Screen Negative (Negative) U Methamphetamines Scrn Negative (Negative) Ur MDMA Scrn (Ecstasy) Negative (Negative) U Benzodiazepines Scrn Negative (Negative) Urine Cocaine Screen Negative (Negative) U Marijuana (THC) Screen Negative (Negative) Ethyl Alcohol ( - 10) mg/dL 07/07/19 07/07/19 Range/Units 07:30 09:32 WBC (4.5-11.0) X10^3/uL RBC (4.5-5.9) X10^6/uL Hgb (13.5-17.5) g/dL Hct (41-53) % MCV (80-100) fL MCH (26-34) PG MCHC (30-36) % RDW (11.6-14.8) % Plt Count (150-400) X10^3/uL Neut % (Auto) (50-75) % Lymph % (Auto) (25-40) % [place]duffie % (Auto) (3-14) % Eos % (Auto) (2-4) % Baso % (Auto) (0-2) % Neut # (Auto) (0980-6776) /uL Lymph # (Auto) (0184-5389) /uL [place]duffie # (Auto) (0-900) /uL Eos # (Auto) (0-450) /uL Baso # (Auto) (0-100) /uL Sodium (137-145) mmol/L Potassium (3.4-5.1) mmol/L Chloride (98-107) mmol/L Carbon Dioxide (22-32) mmol/L BUN (9-20) mg/dL Creatinine (0.66-1.25) mg/dL Estimated GFR (>60) mL/min BUN/Creatinine Ratio (6-22) Glucose (70-100) mg/dL Calcium (8.4-10.2) mg/dL Total Bilirubin (0.2-1.3) mg/dL AST (17-59) IU/L ALT (<50) IU/L Alkaline Phosphatase (38-126) U/L Troponin I (0.01-0.034) ng/mL Total Protein (6.3-8.2) g/dL Albumin (3.5-5.0) g/dL Globulin (1.7-4.1) g/dL Albumin/Globulin Ratio (1.0-2.8) Lipase (23-300) U/L TSH (0.47-4.68) uIU/mL Salicylates (<20) mg/dL U Opiates 300ng/mL cut (Negative) Ur Oxycodone Screen (Negative) Urine Methadone Screen (Negative) Acetaminophen (10-30) ug/mL Ur Barbiturates Screen (Negative) U Tricyclic Antidepress (Negative) Ur Phencyclidine Scrn (Negative) Ur Amphetamines Screen (Negative) U Methamphetamines Scrn (Negative) Ur MDMA Scrn (Ecstasy) (Negative) U Benzodiazepines Scrn (Negative) Urine Cocaine Screen (Negative) U Marijuana (THC) Screen (Negative) Ethyl Alcohol 104 H 53 H ( - 10) mg/dL MDM Narrative Medical decision making narrative: Patient arrived and was obviously intoxicated, was combative, was making comments in the exam room to nursing staff and police that he wanted to kill himself any just wanted to . Patient was not willing to have any exam performed. I felt it necessary given his presentation that he would be sedated chemically in order to take control the situation. This was done without incident. Review the patient's notes does show that he does have coronary artery disease. His alcohol level was very elevated. Care turned over to Dr. Ibanez at change of shift follow-up and re- evaluation. Dr wen 07/07/19 patient has been calm overnight. Alcohol level today now down under the legal limit. Patient is alert oriented x3. Is ambulating without problems. Tolerated oral intake. Has a GCS of 15. [place]. Has capacity make d ecisions. He states that he does not remember last evening. He states that he feels embarrassed. He states that he has no current thoughts of hurting himself. We did discuss his alcohol use. Patient states that he is currently undergoing treatment. He states that last night was a relapse. He declined any offer for help out of the emergency department. He states that he would does contact the resources that he already has. He was reassured. Was informed he could come back to the emergency department at any point. He expressed understanding and agreement. <Alberto Ibanez MD - Last Filed: 07/08/19 15:21> Lab Data Labs: Lab Results 07/06/19 07/06/19 07/06/19 Range/Units 16:11 16:11 16:11 WBC 7.0 (4.5-11.0) X10^3/uL RBC 4.83 (4.5-5.9) X10^6/uL Hgb 15.2 (13.5-17.5) g/dL Hct 43.5 (41-53) % MCV 90.1 (80-100) fL MCH 31.6 (26-34) PG MCHC 35.0 (30-36) % RDW 13.5 (11.6-14.8) % Plt Count 329 (150-400) X10^3/uL Neut % (Auto) 50.7 (50-75) % Lymph % (Auto) 38.9 (25-40) % [place] % (Auto) 8.1 (3-14) % Eos % (Auto) 1.2 L (2-4) % Baso % (Auto) 1.1 (0-2) % Neut # (Auto) 3600 (7635-4950) /uL Lymph # (Auto) 2700 (3604-8961) /uL [place]duffie # (Auto) 600 (0-900) /uL Eos # (Auto) 100 (0-450) /uL Baso # (Auto) 100 (0-100) /uL Sodium 145 (137-145) mmol/L Potassium 4.0 (3.4-5.1) mmol/L Chloride 102 (98-107) mmol/L Carbon Dioxide 27 (22-32) mmol/L BUN 15 (9-20) mg/dL Creatinine 0.90 (0.66-1.25) mg/dL Estimated GFR > 60.0 (>60) mL/min BUN/Creatinine Ratio 16.7 (6-22) Glucose 111 H (70-100) mg/dL Calcium 8.8 (8.4-10.2) mg/dL Total Bilirubin 0.2 (0.2-1.3) mg/dL AST 56 (17-59) IU/L ALT 44 (<50) IU/L Alkaline Phosphatase 75 (38-126) U/L Troponin I (0.01-0.034) ng/mL Total Protein 7.7 (6.3-8.2) g/dL Albumin 4.6 (3.5-5.0) g/dL Globulin 3.1 (1.7-4.1) g/dL Albumin/Globulin Ratio 1.5 (1.0-2.8) Lipase 324 H (23-300) U/L TSH (0.47-4.68) uIU/mL Salicylates < 1.0 (<20) mg/dL U Opiates 300ng/mL cut (Negative) Ur Oxycodone Screen (Negative) Urine Methadone Screen (Negative) Acetaminophen < 10 L (10-30) ug/mL Ur Barbiturates Screen (Negative) U Tricyclic Antidepress (Negative) Ur Phencyclidine Scrn (Negative) Ur Amphetamines Screen (Negative) U Methamphetamines Scrn (Negative) Ur MDMA Scrn (Ecstasy) (Negative) U Benzodiazepines Scrn (Negative) Urine Cocaine Screen (Negative) U Marijuana (THC) Screen (Negative) Ethyl Alcohol 433 H* ( - 10) mg/dL 07/06/19 07/06/19 07/06/19 Range/Units 16:11 16:11 16:30 WBC (4.5-11.0) X10^3/uL RBC (4.5-5.9) X10^6/uL Hgb (13.5-17.5) g/dL Hct (41-53) % MCV (80-100) fL MCH (26-34) PG MCHC (30-36) % RDW (11.6-14.8) % Plt Count (150-400) X10^3/uL Neut % (Auto) (50-75) % Lymph % (Auto) (25-40) % [place]duffie % (Auto) (3-14) % Eos % (Auto) (2-4) % Baso % (Auto) (0-2) % Neut # (Auto) (4359-7637) /uL Lymph # (Auto) (0475-2518) /uL [place]duffie # (Auto) (0-900) /uL Eos # (Auto) (0-450) /uL Baso # (Auto) (0-100) /uL Sodium (137-145) mmol/L Potassium (3.4-5.1) mmol/L Chloride (98-107) mmol/L Carbon Dioxide (22-32) mmol/L BUN (9-20) mg/dL Creatinine (0.66-1.25) mg/dL Estimated GFR (>60) mL/min BUN/Creatinine Ratio (6-22) Glucose (70-100) mg/dL Calcium (8.4-10.2) mg/dL Total Bilirubin (0.2-1.3) mg/dL AST (17-59) IU/L ALT (<50) IU/L Alkaline Phosphatase (38-126) U/L Troponin I 0.018 (0.01-0.034) ng/mL Total Protein (6.3-8.2) g/dL Albumin (3.5-5.0) g/dL Globulin (1.7-4.1) g/dL Albumin/Globulin Ratio (1.0-2.8) Lipase (23-300) U/L TSH 0.40 L (0.47-4.68) uIU/mL Salicylates (<20) mg/dL U Opiates 300ng/mL cut Negative (Negative) Ur Oxycodone Screen Negative (Negative) Urine Methadone Screen Negative (Negative) Acetaminophen (10-30) ug/mL Ur Barbiturates Screen Negative (Negative) U Tricyclic Antidepress Negative (Negative) Ur Phencyclidine Scrn Negative (Negative) Ur Amphetamines Screen Negative (Negative) U Methamphetamines Scrn Negative (Negative) Ur MDMA Scrn (Ecstasy) Negative (Negative) U Benzodiazepines Scrn Negative (Negative) Urine Cocaine Screen Negative (Negative) U Marijuana (THC) Screen Negative (Negative) Ethyl Alcohol ( - 10) mg/dL 07/07/19 07/07/19 Range/Units 07:30 09:32 WBC (4.5-11.0) X10^3/uL RBC (4.5-5.9) X10^6/uL Hgb (13.5-17.5) g/dL Hct (41-53) % MCV (80-100) fL MCH (26-34) PG MCHC (30-36) % RDW (11.6-14.8) % Plt Count (150-400) X10^3/uL Neut % (Auto) (50-75) % Lymph % (Auto) (25-40) % [place]duff[place] % (Auto) (3-14) % Eos % (Auto) (2-4) % Baso % (Auto) (0-2) % Neut # (Auto) (7437-6077) /uL Lymph # (Auto) (5671-4181) /uL [place]duffie # (Auto) (0-900) /uL Eos # (Auto) (0-450) /uL Baso # (Auto) (0-100) /uL Sodium (137-145) mmol/L Potassium (3.4-5.1) mmol/L Chloride (98-107) mmol/L Carbon Dioxide (22-32) mmol/L BUN (9-20) mg/dL Creatinine (0.66-1.25) mg/dL Estimated GFR (>60) mL/min BUN/Creatinine Ratio (6-22) Glucose (70-100) mg/dL Calcium (8.4-10.2) mg/dL Total Bilirubin (0.2-1.3) mg/dL AST (17-59) IU/L ALT (<50) IU/L Alkaline Phosphatase (38-126) U/L Troponin I (0.01-0.034) ng/mL Total Protein (6.3-8.2) g/dL Albumin (3.5-5.0) g/dL Globulin (1.7-4.1) g/dL Albumin/Globulin Ratio (1.0-2.8) Lipase (23-300) U/L TSH (0.47-4.68) uIU/mL Salicylates (<20) mg/dL U Opiates 300ng/mL cut (Negative) Ur Oxycodone Screen (Negative) Urine Methadone Screen (Negative) Acetaminophen (10-30) ug/mL Ur Barbiturates Screen (Negative) U Tricyclic Antidepress (Negative) Ur Phencyclidine Scrn (Negative) Ur Amphetamines Screen (Negative) U Methamphetamines Scrn (Negative) Ur MDMA Scrn (Ecstasy) (Negative) U Benzodiazepines Scrn (Negative) Urine Cocaine Screen (Negative) U Marijuana (THC) Screen (Negative) Ethyl Alcohol 104 H 53 H ( - 10) mg/dL Discharge Plan Departure Patient Disposition: Home Clinical Impression: Suicidal ideation Alcohol intoxication Qualifiers: Complication of substance-induced condition: with unspecified complication Qualified Code(s): F10.929 - Alcohol use, unspecified with intoxication, unspecified Discharge Date/Time: 07/07/19 10:22 Instructions: DI for Alcohol Abuse Activity Restrictions/Additional Instructions: No driving for the next 24 hours or in the future if you partake in intoxicating substances. I recommend that you contact the resources that you have available to help you with the alcohol use. Return to the emergency department for any new or worsening symptoms. Prescriptions: No Action sertraline [Zoloft] 25 mg tablet Qty: 0 RF: 0 ibuprofen 600 MG tablet 600 mg PO TID Qty: 0 RF: 0 hydroxyzine HCl 50 mg tablet RF: 0 aspirin 81 mg tablet,chewable 81 mg PO DAILY RF: 0 zolpidem 5 mg tablet RF: 0 metoprolol succinate 25 mg tablet extended release 24 hr 25 mg PO DAILY RF: 0 buspirone 15 mg tablet 15 mg PO TID RF: 0 bupropion HCl 200 mg tablet sustained-release 12 hr PO RF: 0 Brilinta 90 mg tablet 90 mg PO BID RF: 0 Referrals: [facility] [Primary Care Provider] -
[2019-07-06] MEDS: LORazepam 2 MG/ML INJ IM (16:03)
[2019-07-06] MEDS: diphenhydrAMINE 50 MG/ML VIAL IM (16:03)
[2019-07-06] MEDS: HALOPERIDOL 5 MG/ML VIAL IM (16:03)
--- NOTE | 2019-07-06 16:16 | PC.NURSE ---
pt arrival via ems and police due to intoxication/ when saw police stood up and was confrontational, did cooperate with nursing staff. md in room, rx given 1615 lab here to draw/blood. pt on left side/ sleeping.
[2019-07-06 16:18] LABS: Add Manual Diff / Slide Review NO; Basophils Absolute Auto 100 /uL (0-100); Basophils Percent Auto 1.1 % (0-2); Eosinophils Absolute Auto 100 /uL (0-450); Eosinophils Percent Auto 1.2 % (2-4); Hematocrit 43.5 % (41-53); Hemoglobin 15.2 g/dL (13.5-17.5); Lymphocytes Absolute Auto 2700 /uL (1100-4500); Lymphocytes Percent Auto 38.9 % (25-40); Mean Corpuscular Hemoglobin 31.6 PG (26-34); Mean Corpuscular Volume 90.1 fL (80-100); Monocytes Absolute Auto 600 /uL (0-900); Monocytes Percent Auto 8.1 % (3-14); Neutrophils Absolute Auto 3600 /uL (1500-7000); Neutrophils Percent Auto 50.7 % (50-75); Platelet Count 329 X10^3/uL (150-400); Red Blood Cell Count 4.83 X10^6/uL (4.5-5.9); Red Cell Distribution Width 13.5 % (11.6-14.8)
--- NOTE | 2019-07-06 16:19 | PC.NURSE ---
pt in room 13, is being observed on monitor and by visual. sleeping/ is suicidal and precautions taken
[2019-07-06 16:35] LABS: Acetaminophen < 10 ug/mL (10-30); Alanine Aminotransferase 44 IU/L (<50); Albumin 4.6 g/dL (3.5-5.0); Albumin Globulin Ratio 1.5 (1.0-2.8); Alkaline Phosphatase 75 U/L (38-126); Aspartate Aminotransferase 56 IU/L (17-59); BUN Creatinine Ratio 16.7 (6-22); Bilirubin Total 0.2 mg/dL (0.2-1.3); Blood Urea Nitrogen 15 mg/dL (9-20); Calcium 8.8 mg/dL (8.4-10.2); Carbon Dioxide 27 mmol/L (22-32); Chloride 102 mmol/L (98-107); Estimated Glomerular Filt Rate > 60.0 mL/min (>60); Globulin 3.1 g/dL (1.7-4.1); Glucose 111 mg/dL (70-100); HEMOLYSIS < 15 (0-50); Sodium 145 mmol/L (137-145); Total Protein 7.7 g/dL (6.3-8.2)
[2019-07-06 16:36] LABS: Lipase 324 U/L (23-300); Salicylate < 1.0 mg/dL (<20)
[2019-07-06 16:46] LABS: Ethanol (ETOH) 433 mg/dL; Troponin I 0.018 ng/mL (0.01-0.034)
[2019-07-06 16:49] LABS: UR Morphine/Opiate cutoff 300 Negative (Negative); Ur Creatinine Normal (Normal); Ur Specific Gravity Normal (Normal); Urine Amphetamines Negative (Negative); Urine Barbiturates Negative (Negative); Urine Benzodiazepines Negative (Negative); Urine Cocaine Negative (Negative); Urine MDMA Negative (Negative); Urine Methadone Negative (Negative); Urine Methamphetamines Negative (Negative); Urine Oxycodone Negative (Negative); Urine Phencyclidine Negative (Negative); Urine Tetrahydrocannabinol Negative (Negative); Urine Tricyclic Antidepressant Negative (Negative); Urine pH Normal (Normal)
--- NOTE | 2019-07-06 16:54 | PC.NURSE ---
clothes/shoes/cell phone locked in pt belongings cupboard per protocol
--- NOTE | 2019-07-06 19:55 | PC.NURSE ---
Pt is not in restraints. Sleeping in bed with door open. Arousable.
[2019-07-07 02:00] VITALS: BP 118/81; PULSE 93; RESP 16; TEMP 36.6; O2SAT 96
--- NOTE | 2019-07-07 07:00 | PC.NURSE ---
patient provided food, water and juice.
[2019-07-07 07:54] LABS: Ethanol (ETOH) 104 mg/dL
[2019-07-07 07:55] VITALS: BP 145/78; PULSE 89; RESP 12; TEMP 37; O2SAT 99
--- NOTE | 2019-07-07 08:35 | PC.NURSE ---
has been sleeping, skin warm dry pink.
--- NOTE | 2019-07-07 09:12 | PC.NURSE ---
pt doesnt recall how he got to the hospital, reminded pt and reassured. cooperative at this time, ice water given, plan of care , re draw, pt agreed and back to bed.
[2019-07-07 09:52] LABS: Ethanol (ETOH) 53 mg/dL
[2019-07-07 10:06] VITALS: BP 128/88; PULSE 111; RESP 16; O2SAT 97
--- NOTE | 2019-07-07 10:07 | PC.NURSE ---
Patient received his belonging bag after talking with the doctor. He is calm and cooperative, dressed, ready to leave.
== END 2019-07-07 10:22 | disposition home or self-care (01) ==
PROVIDERS: Emergency Medicine; Emergency Provider Emergency Medicine; PCP Nurse Practitioner Pediatrics
DX: R45.851 Suicidal ideations (principal); F10.929 Alcohol use, unspecified with intoxication, unspecified
CPT/HCPCS: 36415; 80053; 80305; 80320; 80329; 83690; 84443; 84484; 85025; 96372; 99285; G0480; J1200; J1630; J2060

== ENCOUNTER 2019-07-08 13:29 | Emergency (ER) | payer OTHER, MEDICAID, SELFPAY ==
[2019-07-08 13:40] VITALS: BP 150/99; PULSE 100; RESP 16; TEMP 36.9; O2SAT 100; BMI 29.1
--- NOTE | 2019-07-08 13:45 | ED_ITS ---
HPI - General Adult General Chief complaint: Extremity Injury, Upper Stated complaint: right shoulder pains Time Seen by Provider: 07/08/19 13:39 Source: patient Mode of arrival: Ambulatory Limitations: no limitations History of Present Illness HPI narrative: 44-year-old male. Prior history of coronary artery disease with a ST-elevation VT approximately 3 months ago. Has a stent placed. Woke up this morning with right shoulder pain. He states that has been constant since he woke up at 0730 this morning. He states that the only reason he came in today was because he had right shoulder pain the last time he had a heart attack. He does not currently have nausea and vomiting which is other symptoms that he had during his heart attack. No fevers. No trauma. He also states that he has torn rotator cuff in the past and this feels also similar to that. Pain is right shoulder is somewhat reproducible with palpation. He states that is definitely reproducible with movement. No problems breathing. Related Data Home Medications Medication Instructions Recorded Confirmed sertraline [Zoloft] #0 05/18/17 ibuprofen 600 mg PO TID #0 05/27/17 aspirin 81 mg PO DAILY 07/06/19 07/06/19 bupropion HCl PO 07/06/19 buspirone 15 mg PO TID 07/06/19 07/06/19 hydroxyzine HCl 07/06/19 metoprolol succinate 25 mg PO DAILY 07/06/19 07/06/19 ticagrelor [Brilinta] 90 mg PO BID 07/06/19 07/06/19 zolpidem 07/06/19 Allergies Allergy/AdvReac Type Severity Reaction Status Date / Time hydrocodone [HYDROCODONE] Allergy Unknown Verified 06/26/19 19:36 nicotine [From [place]] Allergy Unknown Verified 06/26/19 19:36 Review of Systems Constitutional Constitutional: Denies fever(s) and Denies headache(s) ENT Ears, Nose, Mouth, and Throat: Denies headache(s) Cardiovascular Cardiovascular: Denies chest pain, Denies edema and Denies dyspnea Respiratory Respiratory: Denies cough and Denies dyspnea Gastrointestinal Gastrointestinal: Denies abdominal pain, Denies nausea and Denies vomiting Musculoskeletal Comments: Right shoulder pain Integumentary/Breasts Skin/Breast: Denies lesions and Denies rash Neurologic Neurologic: Denies behavioral changes and Denies headache(s) Psychiatric Psychiatric: Denies behavioral changes Hematologic/Lymphatic Hematologic/Lymphatic: Denies easy bleeding and Denies easy bruising Patient History Medical History Alcohol intoxication (Inactive) Coronary artery disease (Acute) Depression (05/29/16) Depression (Acute) PTSD (post-traumatic stress disorder) (Acute) Pulmonary embolism (Inactive) Pulmonary embolism (Inactive) Social History marital status: lives independently: Yes Smoking Status: Current every day smoker Smoking Status: Current every day smoker alcohol intake frequency: 3 or more drinks per day Alcohol type: beer, wine and hard liquor Substance Use Type: does not use Exam Initial Vital Signs Initial Vital Signs: Vital Signs Temperature 98.5 F 07/08/19 13:40 Pulse Rate 100 H 07/08/19 13:40 Respiratory Rate 16 07/08/19 13:40 Blood Pressure 150/99 H 07/08/19 13:40 Pulse Oximetry 100 07/08/19 13:40 Const General: cooperative and comfortable Limitations: mental status not altered HENCO Head: normal to inspection and normocephalic Resp Effort & Inspection: normal respiratory effort Auscultation: clear to auscultation bilaterally Cardio Rate: regular rate Rhythm: regular rhythm GI Inspection: non-distended Palpation: soft Skin Lesions: no lesions Rashes: no rashes Neuro General: alert, awake and oriented x3 Cognition: normal cognition Speech: speech normal Extrem Other: Does have pain throughout the right shoulder with palpation and with abduction. His right elbow is unremarkable. Psych Appearance: grossly normal and well kempt Course Orders Ordered: ED Orders 07/08/19 13:40 Complete Blood Count AUTO DIFF Stat Comprehensive Metabolic Panel Stat Ethanol (ETOH) Stat Lipase Stat Partial Thromboplastin Time Stat Prothrombin Time INR Stat Troponin I Stat 07/08/19 13:43 EKG-12 Lead Stat Vital Signs Vital signs: Vital Signs - 8 hr 07/08/19 13:40 07/08/19 13:56 07/08/19 14:00 Temperature 98.5 F Pulse Rate 100 H 91 H 96 H Respiratory Rate 16 16 24 Blood Pressure 150/99 H Blood Pressure [Right Arm] 150/99 H 141/94 H Pulse Oximetry 100 97 96 Medical Decision Making Lab Data Lab results reviewed: Yes I reviewed the patient's lab results. Result diagrams: 07/08/19 13:40 07/08/19 13:40 Labs: Lab Results 07/08/19 07/08/19 07/08/19 Range/Units 13:40 13:40 13:40 WBC 7.1 (4.5-11.0) X10^3/uL RBC 4.43 L (4.5-5.9) X10^6/uL Hgb 13.9 (13.5-17.5) g/dL Hct 40.1 L (41-53) % MCV 90.6 (80-100) fL MCH 31.5 (26-34) PG MCHC 34.8 (30-36) % RDW 13.9 (11.6-14.8) % Plt Count 318 (150-400) X10^3/uL Neut % (Auto) 73.6 D (50-75) % Lymph % (Auto) 11.5 L D (25-40) % [place] % (Auto) 14.0 (3-14) % Eos % (Auto) 0.5 L (2-4) % Baso % (Auto) 0.4 (0-2) % Neut # (Auto) 5200 (0916-0902) /uL Lymph # (Auto) 800 L (1397-3287) /uL [place] # (Auto) 1000 H (0-900) /uL Eos # (Auto) 0 (0-450) /uL Baso # (Auto) 0 (0-100) /uL PT 10.7 (10.1-12.7) SECONDS INR 0.9 (0.9-1.3) APTT 28 (26.4-36.2) SECONDS Sodium 136 L (137-145) mmol/L Potassium 3.8 (3.4-5.1) mmol/L Chloride 100 (98-107) mmol/L Carbon Dioxide 27 (22-32) mmol/L BUN 9 (9-20) mg/dL Creatinine 0.90 (0.66-1.25) mg/dL Estimated GFR > 60.0 (>60) mL/min BUN/Creatinine Ratio 10.0 (6-22) Glucose 124 H (70-100) mg/dL Calcium 9.4 (8.4-10.2) mg/dL Total Bilirubin 0.7 (0.2-1.3) mg/dL AST 82 H (17-59) IU/L ALT 61 H (<50) IU/L Alkaline Phosphatase 100 (38-126) U/L Troponin I < 0.012 (0.01-0.034) ng/mL Total Protein 7.7 (6.3-8.2) g/dL Albumin 4.6 (3.5-5.0) g/dL Globulin 3.1 (1.7-4.1) g/dL Albumin/Globulin Ratio 1.5 (1.0-2.8) Lipase 155 D (23-300) U/L Ethyl Alcohol < 10 ( - 10) mg/dL ECG Data Attestation: I personally reviewed and interpreted this ECG as follows: Prior ECG tracings: not available for review Interpretation: Sinus rhythm Ventricular rate 87 Left axis deviation Normal QRS Normal QTC No ST T wave changes MDM Narrative Medical decision making narrative: Patient does have reproducible right-sided shoulder pain to palpation. His EKG shows no ischemic changes. His troponin is negative. Patient again confirmed that he woke up with his right shoulder pain and has been constant since 0730 this morning. This troponin was drawn greater than 6 hours after the onset of his pain which has been constant. He does have a history of coronary artery disease. Has had a ST-elevation VT in the past. I did discuss this with the patient. I did inform him that the fact that it is reproducible and that he has a negative troponin is reassuring that his symptoms today are not cardiac in origin. He also has not drank anything since he was here couple days ago. He is working on setting up in inpatient alcohol rehab. He denied any offer of help here in the emergency department. Will hold on further workup for now. Patient was given return precautions and follow-up instructions. He expressed understanding and agreement plan. Discharge Plan Departure Patient Disposition: Home Clinical Impression: Acute pain of right shoulder Instructions: DI for Shoulder Pain Activity Restrictions/Additional Instructions: Continue all of your medications as directed. I also encourage you to continue to work on finding an inpatient alcohol rehab. You can return to the emergency department for any new or worsening symptoms. Contact your primary provider and also your assistant track coach about your visit here today. Prescriptions: No Action sertraline [Zoloft] 25 mg tablet Qty: 0 RF: 0 ibuprofen 600 MG tablet 600 mg PO TID Qty: 0 RF: 0 hydroxyzine HCl 50 mg tablet RF: 0 aspirin 81 mg tablet,chewable 81 mg PO DAILY RF: 0 zolpidem 5 mg tablet RF: 0 metoprolol succinate 25 mg tablet extended release 24 hr 25 mg PO DAILY RF: 0 buspirone 15 mg tablet 15 mg PO TID RF: 0 bupropion HCl 200 mg tablet sustained-release 12 hr PO RF: 0 Brilinta 90 mg tablet 90 mg PO BID RF: 0 Referrals: [facility] [Primary Care Provider] -
[2019-07-08 13:52] LABS: Add Manual Diff / Slide Review NO; Basophils Absolute Auto 0 /uL (0-100); Basophils Percent Auto 0.4 % (0-2); Eosinophils Absolute Auto 0 /uL (0-450); Eosinophils Percent Auto 0.5 % (2-4); Hematocrit 40.1 % (41-53); Hemoglobin 13.9 g/dL (13.5-17.5); Lymphocytes Absolute Auto 800 /uL (1100-4500); Lymphocytes Percent Auto 11.5 % (25-40); Mean Corpuscular HGB Conc 34.8 % (30-36); Mean Corpuscular Hemoglobin 31.5 PG (26-34); Mean Corpuscular Volume 90.6 fL (80-100); Monocytes Absolute Auto 1000 /uL (0-900); Neutrophils Absolute Auto 5200 /uL (1500-7000); Neutrophils Percent Auto 73.6 % (50-75); Platelet Count 318 X10^3/uL (150-400); Red Blood Cell Count 4.43 X10^6/uL (4.5-5.9); Red Cell Distribution Width 13.9 % (11.6-14.8); White Blood Cell Count 7.1 X10^3/uL (4.5-11.0)
--- NOTE | 2019-07-08 13:52 | PC.NURSE ---
by linda saenz rn.
--- NOTE | 2019-07-08 13:54 | PC.NURSE ---
states, has been sleeping on the cot, now with right shoulder pain, denies injury or trauma.
[2019-07-08 13:56] VITALS: BP 150/99; PULSE 91; RESP 16; O2SAT 97
[2019-07-08 13:57] LABS: INR 0.9 (0.9-1.3); Prothrombin Time 10.7 SECONDS (10.1-12.7)
[2019-07-08 14:00] VITALS: BP 141/94; PULSE 96; RESP 24; O2SAT 96
[2019-07-08 14:00] LABS: PTT Partial Thromboplastin Tim 28 SECONDS (26.4-36.2)
[2019-07-08 14:01] LABS: Alanine Aminotransferase 61 IU/L (<50); Albumin 4.6 g/dL (3.5-5.0); Albumin Globulin Ratio 1.5 (1.0-2.8); Alkaline Phosphatase 100 U/L (38-126); Aspartate Aminotransferase 82 IU/L (17-59); Bilirubin Total 0.7 mg/dL (0.2-1.3); Blood Urea Nitrogen 9 mg/dL (9-20); Calcium 9.4 mg/dL (8.4-10.2); Carbon Dioxide 27 mmol/L (22-32); Chloride 100 mmol/L (98-107); Estimated Glomerular Filt Rate > 60.0 mL/min (>60); Ethanol (ETOH) < 10 mg/dL; Globulin 3.1 g/dL (1.7-4.1); Glucose 124 mg/dL (70-100); HEMOLYSIS < 15 (0-50); Lipase 155 U/L (23-300); Potassium 3.8 mmol/L (3.4-5.1); Sodium 136 mmol/L (137-145); Total Protein 7.7 g/dL (6.3-8.2)
[2019-07-08 14:13] LABS: Troponin I < 0.012 ng/mL (0.01-0.034)
[2019-07-08 14:30] VITALS: BP 152/94; PULSE 95; RESP 18; O2SAT 95
== END 2019-07-08 14:44 | disposition home or self-care (01) ==
PROVIDERS: Emergency Provider Emergency Medicine; PCP Nurse Practitioner Pediatrics
DX: M25.511 Pain in right shoulder (principal); I25.2 Old myocardial infarction
CPT/HCPCS: 36415; 80053; 80320; 83690; 84484; 85025; 85610; 85730; 93005; 99284

== ENCOUNTER 2022-11-27 17:56 | Emergency (ER) | payer OTHER, MEDICAID, SELFPAY ==
[2022-11-27 18:01] VITALS: BP 181/101; PULSE 97; RESP 18; TEMP 36.6; O2SAT 96; BMI 36.3
== END 2022-11-27 20:35 | disposition left against medical advice (07) ==
PROVIDERS: Emergency Provider Emergency Medicine; PCP Nurse Practitioner Pediatrics
DX: S81.811A Laceration without foreign body, right lower leg, initial encounter (principal)
CPT/HCPCS: 99282